=== PATIENT | female | born 1995 ===

== ENCOUNTER 2018-03-26 16:43 | Emergency (ER) | payer OTHER ==
[~2018-03-26] VITALS: Ht 157.5 cm; Wt 90.9 kg
[2018-03-26 16:45] VITALS: BP 129/72; PULSE 96; TEMP 98.9
[2018-03-26] MEDS ORDERED: LEVAQUIN 750MG750 M1 PO (16:53)
[2018-03-26] MEDS ORDERED: NORCO 325 MG-51 TAB PO (16:53)
[2018-03-26] MEDS ORDERED: TORADOL 10MG TA10 MG PO (16:53)
[2018-03-26 17:12] LABS: COLLECTION METHOD CLEAN CATCH
[2018-03-26 17:27] LABS: MUCOUS Present /lpf; PH 5 (5-8); SQUAMOUS EPITHELIAL 0-2 /hpf; URINE APPEARANCE Clear; URINE BACTERIA None Seen /hpf; URINE BILIRUBIN Negative (NEGATIVE); URINE BLOOD 1+ (NEGATIVE); URINE COLOR Yellow; URINE GLUCOSE Negative (NEGATIVE); URINE KETONE Negative (NEGATIVE); URINE LEUKOCYTE ESTERASE Negative (NEGATIVE); URINE NITRATE Negative (NEGATIVE); URINE PROTEIN(semi-quant) Negative (NEGATIVE); URINE UROBILINOGEN Negative (NEGATIVE)
== END 2018-03-26 18:30 | disposition other institution (70) ==
LOC: COL.ER 16:43 → SURG 17:35 → COL.ER 17:35 → SURG 17:35 → COL.ER 18:30
PROVIDERS: Physician Assistant
DX: N20.0 Calculus of kidney (principal); R82.71 Bacteriuria
CPT/HCPCS: J0690; J1100; J1885; J2405; J2704; J3010; J7120

== ENCOUNTER 2018-03-26 19:05 | Day surgery (SDC) | payer OTHER ==
[2018-03-26 18:24] VITALS: BP 117/54; PULSE 84
[2018-03-26 18:39] VITALS: BP 116/63; PULSE 67
[2018-03-26 18:54] VITALS: BP 108/67; PULSE 75
[~2018-03-26 19:05] MED LIST: LEVAQUIN 750MG750 M1 PO; NORCO 325 MG-51 TAB PO; TORADOL 10MG TA10 MG PO
[2018-03-26 19:09] VITALS: BP 102/52; PULSE 67
[2018-03-26 19:39] VITALS: BP 104/60; PULSE 72
[2018-03-26 19:55] VITALS: BP 107/80; PULSE 72; TEMP 97.1
== END 2018-03-26 21:00 | disposition home or self-care (01) ==
LOC: SDCO 19:05 → SURG 19:42 → SDCO 21:00
DX: N20.1 Calculus of ureter (principal); R93.41 Abnormal radiologic findings on diagnostic imaging of renal pelvis, ureter, or bladder; F17.210 Nicotine dependence, cigarettes, uncomplicated
CPT/HCPCS: OP; C1769; C1894; C2617; J3010; Q9967